=== PATIENT | male | born 1965 | race Caucasian/White ===

== ENCOUNTER → 2019-04-13 | Day surgery (SDC) | payer MEDICARE ==
[2019-04-12 13:39] LABS: BASOPHILS % 0.5 % (0.0-1.0); EOSINOPHILS # (AUTO) 0.1 (0.0-0.4); EOSINOPHILS % 2.3 % (0.0-6.0); HEMATOCRIT 35.5 % (38.2-49.6); HEMOGLOBIN 11.4 g/dL (14.0-18.0); LYMPHOCYTES # (AUTO) 1.7 (1.0-3.2); LYMPHOCYTES % 37.7 % (18.0-39.1); MEAN CORPUSCULAR HEMOGLOBIN 30.1 pg (28-32); MEAN CORPUSCULAR HGB CONC 32.1 g/dL (31-35); MEAN CORPUSCULAR VOLUME 93.7 fL (81-99); MONOCYTES # (AUTO) 0.3 (0.2-0.8); MONOCYTES % 6.4 % (4.4-11.3); NEUTROPHILS # (AUTO) 2.3 (2.1-6.9); NEUTROPHILS % 52.9 % (38.7-80.0); PLATELET COUNT 218 x10e3/uL (140-360); RED BLOOD COUNT 3.79 x10e6/uL (4.3-5.7); RED CELL DISTRIBUTION WIDTH 12.4 % (11.7-14.4)
--- NOTE | 2019-04-12 14:27 | Diagnostic Imaging Report ---
EXAMINATION: PA and lateral views of the chest. COMPARISON: None CLINICAL HISTORY: Preoperative exam for hernia repair DISCUSSION: Lines/tubes: None. Lungs: The lungs are well inflated and clear. There is no evidence of pneumonia or pulmonary edema. Pleura: There is no pleural effusion or pneumothorax. Heart and mediastinum: The cardiomediastinal silhouette is normal. Bones and soft tissues: No acute bony abnormalities. Healed fracture deformity of the posterior right eighth rib. IMPRESSION: No acute cardiopulmonary abnormalities. Signed by: Dr. Lalo Dotson M.D. on 04/12/2019 2:24 PM
[~2019-04-13] MED LIST: ADVAIR 100-501 EACH; AMITRIPTYLINE H25 MG PO; ANORO INHALER; ANTARA; ASPIRIN81 MG; ATROPINE SULFATE 1 MG/ML VIAL ONE; BACITRACIN 50,000 UNIT VIAL ONE; BUPIVACAINE HCL 0.5% INJ 30 ML VIAL INJ ONE; BUSPIRONE HCL5 MG PO; CEFAZOLIN SOD 2 GM/D5W 50ML 50 ML IV ONE; CETIRIZINE HCL10 MG; CYCLOBENZAPRINE5 MG; D3; DEXAMETHASONE SOD PHOS INJ 4 MG/ML VIAL ONE; FENOFIBRATE145 MG; FENTANYL CITRATE/PF 100MCG/2 ML INJ ONE; FISH OIL 1,2001 EACH; FLOMAX0.4 MG PO; LEVOTHYROXINE75 MCG PO; LIDOCAINE HCL 2% LOCAL INJ 5 ML SDV VIAL INJ ONE; LISINOPRIL10 MG PO; MIDAZOLAM HCL 2 MG/2 ML VIAL ONE; MULTI-VITAMIN1 EACH; NEOSTIGMINE 5 MG/5ML SYR ONE; OMEPRAZOLE40 MG; ONDANSETRON HCL INJ 2MG/ML 2ML 2 MG/ML VIAL ONE; POLYETHYLENE GL17 GM PO; PROPOFOL IV EMULSION 10 MG/ML 20 ML VIAL ONE; PYRIDOSTIGMINE60 MG; ROCURONIUM BROMIDE 10 MG/ML 5ML VIAL ONE; SEVOFLURANE INHAL SOLN 250 ML PEN BTL ONE; TESTOSTERONE GEL; VENTOLIN HFA18 GM; XANAX0.5 MG
--- OUTSIDE RECORDS SUMMARY | 2019-04-13 11:09 | XMS REPORT | Clinical Summary ---
Author Author [facility] Organization [facility] Address Unknown Phone Unavailable Care Team Providers Care Patient Observer Name Role Phone Jeremias Stone MD PCP Allergies No Known Allergies Medications End Date Status Medication Sig Dispensed Refills Start Date Active tamsulosin (FLOMAX) 0.4 Take 0.4 mg 0 mg capsule,extended by mouth release 24hr daily. Active levothyroxine (SYNTHROID, Take 75 mcg 0 LEVOXYL) 75 mcg tablet by mouth every morning. Active testosterone (ANDROGEL) 1 Place 5 g on 0 % (25 mg/2.5gram) gel in the skin packet daily. Active polyethylene glycol Take 17 g by 0 (MIRALAX) 17 gram packet mouth daily. Active ALPRAZolam (XANAX) 0.5 MG Take 0.5 mg 0 tablet by mouth nightly as needed for anxiety. Active omeprazole (PriLOSEC) 40 Take 40 mg by 0 MG capsule mouth daily. Active budesonide-formoterol Inhale 2 0 (SYMBICORT) 160-4.5 puffs 2 (two) mcg/actuation inhaler times a day. Active cyclobenzaprine Take 10 mg by 0 (FLEXERIL) 10 mg tablet mouth. Active fenofibrate (TRICOR) 145 Take 145 mg 0 MG tablet by mouth daily. Active lisinopril Take 10 mg by 0 (PRINIVIL,ZESTRIL) 10 mg mouth daily. tablet Active umeclidinium bromide Inhale. 0 (INCRUSE ELLIPTA INHL) Active cetirizine 10 mg capsule Take by 0 mouth. Active fluticasone (FLONASE) 50 2 sprays by 0 mcg/actuation nasal spray Each Nare route daily. Active amitriptyline (ELAVIL) 25 Take 25 mg by 0 MG tablet mouth nightly. Active fentanyl/bupivacaine/NS/P Inject as 0 F (FENTANYL, directed. PF,-BUPIVACAINE-NACL) Infusion pump 2-0.0625 mcg/mL-% prefilled pump reservoir Active sodium chloride 0.9% Infuse into a 0 parenteral solution with venous hydromorPHONE (PF) 10 catheter mg/mL solution 20 mcg/mL continuously. Infusion pump Active fenofibrate micronized Take 130 mg 0 (ANTARA) 130 MG capsule by mouth daily before breakfast. Active albuterol sulfate Inhale. 0 (VENTOLIN HFA INHL) Active umeclidinium Inhale. 0 brm/vilanterol tr (ANORO ELLIPTA INHL) Active multivitamin (THERAGRAN) Take 1 tablet 0 tablet by mouth daily. Active cholecalciferol, vitamin Take 2,000 0 D3, (VITAMIN D3) 2,000 Units by unit capsule capsule mouth daily. Active docosahexanoic acid/epa Take 1,200 mg 0 (FISH OIL ORAL) by mouth. Active ascorbic acid, vitamin C, Take 500 mg 0 (ascorbic acid with breezy by mouth hips) 500 MG tablet daily. Active urea (CARMOL) 40 % cream Apply 0 topically 2 (two) times a day. Active halobetasol (ULTRAVATE) Apply 0 0.05 % cream topically 2 (two) times a day. Active MESTINON 60 mg Take 60mg PO 90 tablet 11 tabletIndications: BID x 1wk, 9 Oropharyngeal dysphagia then 60mg PO TID. Active busPIRone (BUSPAR) 5 MG 5 mg 2 (two) 0 tablet times a day. 9 11/24/2018 Discontinued fentaNYL (FENTORA) 100 Apply 100 mcg 0 MCG buccal tablet to cheek every 4 (four) hours as needed for moderate pain. 11/24/2018 Discontinued hydromorPHONE (DILAUDID) Take 2 mg by 0 2 MG tablet mouth every 4 (four) hours as needed. 09/14/2018 Discontinued acitretin (SORIATANE) 25 Take 25 mg by 0 MG capsule mouth daily before breakfast. 09/14/2018 Discontinued ketamine 0.5% and Apply 0 bupivacaine 0.5% cream topically once. 09/14/2018 Discontinued ranitidine (ZANTAC) 150 Take 1 tablet 60 tablet 11 03/06/201 MG tablet (150 mg 8 total) by mouth 2 (two) times a day. 08/30/2018 fluconazole (DIFLUCAN) Take 1 tablet 21 tablet 0 100 MG tablet (100 mg 8 total) by mouth daily for 21 days. 10/26/2018 fluconazole (DIFLUCAN) Take 1 tablet 14 tablet 0 100 MG tablet (100 mg 8 total) by mouth daily for 14 days. 10/22/2018 azithromycin (ZITHROMAX) Take 2 6 tablet 0 250 MG tablet tablets the 8 first day, then 1 tablet daily for 4 days. Active Problems No known active problems Encounters Care Team Description Date Type Specialty Liz Beaver MD Oropharyngeal dysphagia (Primary Dx); Hoarseness of voice; Cervical radiculopathy; At high risk for aspiration 04/12/2019 Office Visit Neurology Liz Beaver MD 02/17/2019 Telephone Neurology Spring Brandt MA 01/31/2019 Telephone Neurology Liz Beaver MD Oropharyngeal dysphagia; Hoarseness of voice; Aspiration pneumonia, unspecified aspiration pneumonia type, unspecified laterality, unspecified part of lung (HCC) 01/30/2019 Hospital Radiology Encounter Liz Beaver MD Oropharyngeal dysphagia; Cervical radiculopathy 01/30/2019 Hospital Radiology Encounter Liz Beaver MD Oropharyngeal dysphagia (Primary Dx) 01/30/2019 Orders Only Neurology Liz Beaver MD 01/24/2019 Telephone Neurology Spring Brandt MA 01/12/2019 Telephone Neurology Liz Beaver MD Oropharyngeal dysphagia 12/27/2018 Lab Lab Liz Beaver MD Oropharyngeal dysphagia 12/27/2018 Lab Lab Liz Beaver MD Oropharyngeal dysphagia (Primary Dx); Hoarseness of voice; Aspiration pneumonia, unspecified aspiration pneumonia type, unspecified laterality, unspecified part of lung (HCC); Cervical radiculopathy; Former smoker, stopped smoking many years ago 12/27/2018 Office Visit Neurology Liz Beaver MD 12/27/2018 Orders Only Neurology Liz Beaver MD Oropharyngeal dysphagia (Primary Dx) 12/08/2018 Orders Only Neurology Nikki Santos MD Pharyngeal dysphagia (Primary Dx); Acute laryngitis 11/24/2018 Office Visit Otolaryngology Juanita Qureshi MA Pharyngeal dysphagia (Primary Dx); Aspiration pneumonia, unspecified aspiration pneumonia type, unspecified laterality, unspecified part of lung (HCC) 10/24/2018 Telephone Otolaryngology Flor Corbett MA 10/18/2018 Orders Only Otolaryngology Flor Corbett MA 10/17/2018 Telephone Otolaryngology Zehra Little MD Other acute nonsuppurative otitis media of right ear, recurrence not specified (Primary Dx); Dysfunction of both eustachian tubes 10/13/2018 Office Visit Otolaryngology Juanita Qureshi MA 10/12/2018 Telephone Otolaryngology Nikki Santos MD Pharyngeal dysphagia (Primary Dx); Chronic laryngitis 09/14/2018 Office Visit Otolaryngology Nikki Santos MD Chronic laryngitis (Primary Dx); Pharyngeal dysphagia 08/09/2018 Office Visit Otolaryngology 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 08/09/2018 Speech & Otolaryngology Language Eval Zehra Little MD Dysphonia (Primary Dx); Chronic non-seasonal allergic rhinitis, unspecified trigger; Laryngopharyngeal reflux (LPR); IgG deficiency 06/15/2018 Office Visit Otolaryngology after 04/12/2018 Family History Medical History Relation Name Comments Heart disease Father Heart disease Maternal Grandmother Heart disease Paternal Grandfather Heart disease Paternal Grandmother Relation Name Status Comments Father Maternal Grandmother Paternal Grandfather Paternal Grandmother Social History Date Tobacco Use Types Packs/Day Years Used Former Smoker Smokeless Tobacco: Never Used Alcohol Use Drinks/Week oz/Week Comments No Sex Assigned at Date Recorded Not on file Industry Job Start Date Occupation Not on file Not on file Not on file Travel End Travel History Travel Start No recent travel history available. Last Filed Vital Signs Time Taken Vital Sign Reading 04/12/2019 10:12 AM CDT Blood Pressure 110/72 04/12/2019 10:12 AM CDT Pulse 74 - Temperature - - Respiratory Rate - - Oxygen Saturation - - Inhaled Oxygen - Concentration 04/12/2019 10:12 AM CDT Weight 108 kg (238 lb) 04/12/2019 10:12 AM CDT Height 185.4 cm (6' 1") 04/12/2019 10:12 AM CDT Body Mass Index 31.4 Plan of Treatment Care Team Description Date Type Specialty Liz Beaver MD [address] [facility] [address] [place] [address] 10/17/2019 Office Visit Neurology Health Maintenance Due Date Last Done Comments COLON CANCER SCREENING 2014 SHINGLES VACCINES (#1) 2014 INFLUENZA VACCINE 06/15/2019 Procedures Comments Procedure Name Priority Date/Time Associated Diagnosis NE MOTOR &/SENS 9-10 NRV Routine 01/31/2019 Oropharyngeal dysphagia CNDJ PRECONF ELTRODE LIMB 3:[address] CHEST W CONTRAST Routine 01/30/2019 Oropharyngeal dysphagia 10:33 AM CDT Hoarseness of voice Aspiration pneumonia, unspecified aspiration pneumonia type, unspecified laterality, unspecified part of lung (HCC) ESTIMATED GFR Routine 01/30/2019 9:48 AM CDT POC CREATININE Routine 01/30/2019 9:48 AM CDT MRI CERVICAL SPINE WO Routine 01/30/2019 Oropharyngeal dysphagia CONTRAST 9:10 AM CDT Cervical radiculopathy LACTIC ACID LEVEL Routine 12/27/2018 4:00 PM ORACLE CONSULTANT ALDOLASE, SERUM Routine 12/27/2018 4:00 PM ORACLE CONSULTANT THYROID ANTIBODY GROUP Routine 12/27/2018 (TPO + TG) 4:00 PM ORACLE CONSULTANT ATYPICAL P ANCA TITER Routine 12/27/2018 4:00 PM ORACLE CONSULTANT ANCA SCREEN WITH REFLEX Routine 12/27/2018 TO ANCA TITER 4:00 PM ORACLE CONSULTANT DEE IFA, W/REFL TO Routine 12/27/2018 TITER/PATTERN/CASCADE 4:00 PM ORACLE CONSULTANT SSA/SSB ANTIBODY Routine 12/27/2018 4:00 PM ORACLE CONSULTANT KKAPPA/LAMBDA LIGHT Routine 12/27/2018 CHAINS, FREE WITH RATIO 4:00 PM ORACLE CONSULTANT AND REFLEX TO IMMUNOFIXAT ACETYLCHOLINE RECEPTOR Routine 12/27/2018 BLOCKING AB 4:00 PM ORACLE CONSULTANT THYROID STIMULATING Routine 12/27/2018 IMMUNOGLOBULIN 4:00 PM ORACLE CONSULTANT ACETYLCHOLINE RECEPTOR Routine 12/27/2018 MODULATING AB 4:00 PM ORACLE CONSULTANT STRIATED MUSCLE AB, IGG Routine 12/27/2018 WITH REFLEX TO TITER 4:00 PM ORACLE CONSULTANT ACETYLCHOLINE RECEPTOR Routine 12/27/2018 BINDING AB 4:00 PM ORACLE CONSULTANT CREATINE KINASE, TOTAL Routine 12/27/2018 (CPK) 4:00 PM ORACLE CONSULTANT BASIC METABOLIC PANEL Routine 12/27/2018 4:00 PM ORACLE CONSULTANT SERUM ELECTROPHORESIS Routine 12/27/2018 4:00 PM ORACLE CONSULTANT MISCELLANEOUS REFERRAL Routine 12/27/2018 TEST 4:00 PM ORACLE CONSULTANT after 04/12/2018 Results * EMG General Request (01/31/2019 3:42 PM CDT) Narrative Performed At Electromyography and NCS Report [facility] Neurological [place] [address] [address] T :( [phone] F : Patient: Thad Fonseca Physician: Omer Beaver MD Sex: Male Test Date: 01/30/19 Age: 53 Height: 73 inches Weight: 229 lbs Ref. M.D.: Liz Beaver MD. : 1965 History/Comments: Thad Fonseca is a 53 y.o. male in EMG lab for evaluation of dysphagia and hoarseness of voice since 2011 but has gradually progressed in the last 1 1/2 years to a point where he has been aspirating a lot with 2-3 aspiration pneumonias. Denies any muscle weakness, twitching, diplopia or droopy eyes. Neurological exam showed hoarse voice, no dysarthria, good gag reflex, normal muscle strength and bulk, absent ankle reflex bilaterally and no fatigability. Temp: URE: 31.0, LRE: 33.0 Motor Nerve Study Right Median Nerve Rec Site: APB Lat (ms) Amp (mV) Dist (mm) C.V. (m/s) STIM SITE Wrist 3.910.50 Elbow [id number] Right Ulnar Nerve Rec Site: ADM Lat (ms) Amp (mV) Dist (mm) C.V. (m/s) STIM SITE Wrist 3.09.265 B.Elbow 6.28.099803.2 A.Elbow 8.48.717025.3 Right Peroneal Nerve Rec Site: EDB Lat (ms) Amp (mV) Dist (mm) C.V. (m/s) STIM SITE Ankle 4.33.70 Fib.Head 12.73.303483.8 Pop.Fos. [id number] Right Tibial Nerve Rec Site: AH Lat (ms) Amp (mV) Dist (mm) C.V. (m/s) STIM SITE Ankle 3.49.40 Pop.Fos. [id number] Sensory Nerve Study Right Median Nerve Rec Site: Wrist Pk Lat (ms) Amp (uV) STIM SITE Thumb 3.926.0 Sensory Nerve Study Right Ulnar Nerve Rec Site: Wrist Pk Lat (ms) Amp (uV) STIM SITE 5th dig 3.19.7 Right Radial Nerve Rec Site: Wrist Pk Lat (ms) Amp (uV) STIM SITE Index 2.546.3 Right Sural Nerve Rec Site: Ankle Pk Lat (ms) Amp (uV) STIM SITE mid calf NRNR Right Saphenous Nerve Rec Site: Ankle Pk Lat (ms) Amp (uV) STIM SITE Med.Lotus. NRNR Right SuperperonNerve Rec Site:Pk Lat (ms) Amp (uV) STIM SITE NRNR F-Wave Study Right Median Nerve Rec Site: APB Latency Amplitude Stim Site: Wrist ms mV M wave 0.00 F wave 30.081.50 Right Ulnar Nerve Rec Site: ADM Latency Amplitude Stim Site: Wrist ms mV M wave 0.00 F wave 31.921.50 Right Peroneal Nerve Rec Site: EDB Latency Amplitude Stim Site: Ankle ms mV M wave 0.00 F wave 57.171.50 Right Tibial Nerve Rec Site: AH Latency Amplitude Stim Site: Ankle ms mV M wave 0.00 F wave 54.501.50 Repetitive Stimulation Study Right Ulnar Nerve Rec Site: ADM Stim Site: Wrist Trace 1 Trace 4 % decr. 8.833 9.000 1.800 AMP9.000 9.250 2.700 (mV)10.167 10.333 1.600 27.090 27.056 -0.100 AREA32.535 33.625 3.300 (mVms)33.389 32.549 -2.500 NOTES: Preex, Immed P, 1min P 1 min Exercise Repetitive Stimulation Study Right Ulnar Nerve Rec Site: ADM Stim Site: Wrist Trace 1 Trace 4 % decr. 8.917 9.417 5.600 AMP8.833 9.250 4.700 (mV)0.000 0.000 ? 29.083 29.056 0.000 AREA28.660 28.903 0.800 (mVms)0.000 0.000 ? NOTES: 2min P, 3min P Right Accessory Nerve Rec Site: Stim Site: Trace 1 Trace 4 % decr. 4.250 4.417 3.900 AMP3.667 3.583 -2.200 (mV)4.167 4.333 4.000 29.382 0.299 -98.900 AREA0.139 22.819 26946.400 (mVms)0.507 26.431 5114.100 NOTES: Preex, Immed P, [id number] Exercise Right Accessory Nerve Rec Site: Stim Site: Trace 1 Trace 4 % decr. 4.167 4.417 5.900 AMP4.250 4.333 1.900 (mV)0.000 0.000 ? 28.639 27.590 -3.600 AREA0.410 0.417 1.700 (mVms)0.000 0.000 ? NOTES: 2min P, 3min P Right Facial Nerve Rec Site: Stim Site: Trace 1 Trace 4 % decr. 1.900 1.900 0.000 AMP2.167 1.967 -9.200 (mV)1.800 1.800 0.000 5.722 5.544 -3.100 AREA6.272 5.869 -6.400 (mVms)5.306 5.333 0.500 NOTES: Preex, Immed P, 1min P 1 min Exercise Repetitive Stimulation Study Right Facial Nerve Rec Site: Stim Site: Trace 1 Trace 4 % decr. 2.133 2.067 -3.100 AMP1.967 2.100 6.700 (mV)0.000 0.000 ? 6.544 6.108 -6.600 AREA5.778 6.117 5.800 (mVms)0.000 0.000 ? NOTES: 2min P, 3min P EMG Study Name Ins Act Fibs PSW Fascics Polyph MU Amp MU Dur Config Pattern Recruit TEXT R. Deltoidnorm none none none none norm norm norm norm norm R. Biceps Bracnorm none none none rare norm norm norm norm norm R. Tricepsnorm none none none inc norm norm serr norm norm R. Brachioradinorm none none none inc norm inc poly norm -1 R. Dors.Int.1norm none none none inc inc inc poly norm -1 R. Vastus Lat.norm none none none none norm norm norm norm norm R. Adductor Lnnorm none none none none norm norm norm norm norm R. Tibialis Annorm none none none none norm norm norm norm norm R. Gastroc.Mednorm none none none inc norm norm poly norm norm R. Semimembr.norm none none none none norm norm norm norm norm R. Tonguenorm none none none none Far MUAPs Nerve conduction study: 1. Normal distal latency, amplitude and conduction velocity in right median, ulnar, peroneal and tibial motor responses. 2. Prolonged peak latency and normal amplitude in right median sensory response. 3. Normal peak latency and reduced amplitude in right ulnar sensory response. 4. Normal peak latency and amplitude in right radial sensory response. 5. Absent right sural, superficial peroneal and saphenous sensory responses. 6. F-waves: normal in right median, ulnar and tibial nerves. Prolonged in right peroneal nerve. Repetitive nerve stimulation: Repetitive stimulations of the right ulnar nerve (3 Hz, recording from ADM) showed no decrement. Repetitive stimulations of the right XI nerve (3 Hz, recording from trapezius) showed maximum decrement of 2.2% (immediate post-exercise). Repetitive stimulations of the right facial nerve (3 Hz, recording from nasalis) showed maximum decrement of 9.2% (immediate post-exercise). Electromyography: Using a sterile monopolar needle intramuscular recordings were evaluated in the RUE & RLE and tongue. There were polyphasic/ large amplitude/ long duration motor units with reduced recruitment in right triceps, Brachioradialis and first DI suggestive of chronic denervation. Tongue was normal although the MUAPs were far. Impression: Abnormal EMG/NCS 1. This study suggests a chronic inactive right C7 & C8 radiculopathy. 2. 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 3. There is no electro-diagnostic evidence of neuromuscular junction compromise or motor neuron disease. Recommendations: As we have seen borderline decline (9.2%) on RNS of right facial nerve although it s not >10% decrement evaluation for neuromuscular junction disorders can be considered if clinically indicated. Liz Beaver MD Material Reprocessing Associate in Clinical neurology Adjunct Material Reprocessing Associate [facility] Neurology, Neuromuscular Medicine, Electrodiagnostic medicine [address] [facility] [address], [place] Department of Neurology [facility], [place] [address] Office: [phone] * CT Chest W Contrast (01/30/2019 10:33 AM CDT) Specimen Narrative Performed At EXAM: HM [facility] CT CHEST W CONTRAST INDICATION: R13.12 Dysphagiaoropharyngeal phase, R49.0 Dysphonia, chronic smokerhoarseness of voice COMPARISON: None. TECHNIQUE: After administration of iodinated contrast intravenously, axial CT images of the chest were obtained. Coronal and sagittal reformations were obtained. Axial maximal intensity projection images the lungs were obtained. Iterative reconstruction and/or automated exposure control techniques were employed to reduce radiation dose. FINDINGS: Limited neck: Visualized portions of the thyroid are normal. Subcentimeter short axis lymph nodes scattered throughout the bilateral lower neck which do not meet CT size criterion for adenopathy. Chest: Normal fatty involution of the thymus. Esophagus is normal. Heart size is normal. Small, simple pericardial effusion. Left vertebral artery arises directly from the aortic arch, an anatomic variant. Minimal atherosclerosis aortic arch. Main pulmonary artery diameter is normal. No mediastinal, hilar, internal mammary, or bilateral axillary adenopathy. Small amount of mucous debris layering within the dependent portion the upper trachea (series 3 and 1, slice 19). Minimal linear opacity lateral aspect lingula and anterior aspect right upper lobe discoid atelectasis versus scar/fibrosis. Otherwise, major airways are normal. Trace biapical pleural thickening. 7 mm diameter paraseptal bulla medial aspect right lung apex (series 301, slice 29). 1.0 cm diameter bulla posterior aspect left lower lobe (series 301, slice 77). Trace centrilobular emphysema bilateral lung apices. 3 mm diameter calcified granuloma medial aspect right lower lobe (series 3 and 1, slice 64). Mild dependent subpleural linear interstitial thickening groundglass, dependent atelectasis an/or nonspecific fibrosis. Mild gynecomastia bilaterally. Limited abdomen: Subtle hypodensity liver along the adjacent to the falciform ligament, likely focal fatty infiltration. Otherwise, visualized portions of the liver and gallbladder are normal. Mild atrophy of the pancreas, visualized portions of the spleen, bilateral adrenals, and bilateral kidney upper poles are normal. Visualized portions of the stomach, small bowel, and large bowel are normal. Visualized upper abdominal vasculature is normal. No adenopathy in visualized portions of the upper abdomen. Musculoskeletal: 9 mm diameter rim calcified tubular structure right paramedian back subcutaneous fat at the level the mid thoracic spine (series 602B, slice 48) without suspicious feature. Partially visualized intrathecal catheter anterior aspect epidural space lower thoracic spine (series 600 2B, slice 55). Minimal degenerative changes thoracic spine. Osteopenia. No suspicious osseous soft tissue structures. IMPRESSION: 1. Trace centrilobular emphysema and 2 subcentimeter bulla. No suspicious pulmonary nodule. 2. Osteopenia. [id number] Procedure Note Interface, Radiology Results Incoming - 01/30/2019 10:57 AM CDT EXAM: CT CHEST W CONTRAST INDICATION: R13.12 Dysphagia oropharyngeal phase, R49.0 Dysphonia, chronic smoker hoarseness of voice COMPARISON: None. TECHNIQUE: After administration of iodinated contrast intravenously, axial CT images of the chest were obtained. Coronal and sagittal reformations were obtained. Axial maximal intensity projection images the lungs were obtained. Iterative reconstruction and/or automated exposure control techniques were employed to reduce radiation dose. FINDINGS: Limited neck: Visualized portions of the thyroid are normal. Subcentimeter short axis lymph nodes scattered throughout the bilateral lower neck which do not meet CT size criterion for adenopathy. Chest: Normal fatty involution of the thymus. Esophagus is normal. Heart size is normal. Small, simple pericardial effusion. Left vertebral artery arises directly from the aortic arch, an anatomic variant. Minimal atherosclerosis aortic arch. Main pulmonary artery diameter is normal. No mediastinal, hilar, internal mammary, or bilateral axillary adenopathy. Small amount of mucous debris layering within the dependent portion the upper trachea (series 3 and 1, slice 19). Minimal linear opacity lateral aspect lingula and anterior aspect right upper lobe discoid atelectasis versus scar/fibrosis. Otherwise, major airways are normal. Trace biapical pleural thickening. 7 mm diameter paraseptal bulla medial aspect right lung apex (series 301, slice 29). 1.0 cm diameter bulla posterior aspect left lower lobe (series 301, slice 77). Trace centrilobular emphysema bilateral lung apices. 3 mm diameter calcified granuloma medial aspect right lower lobe (series 3 and 1, slice 64). Mild dependent subpleural linear interstitial thickening groundglass, dependent atelectasis an/or nonspecific fibrosis. Mild gynecomastia bilaterally. Limited abdomen: Subtle hypodensity liver along the adjacent to the falciform ligament, likely focal fatty infiltration. Otherwise, visualized portions of the liver and gallbladder are normal. Mild atrophy of the pancreas, visualized portions of the spleen, bilateral adrenals, and bilateral kidney upper poles are normal. Visualized portions of the stomach, small bowel, and large bowel are normal. Visualized upper abdominal vasculature is normal. No adenopathy in visualized portions of the upper abdomen. Musculoskeletal: 9 mm diameter rim calcified tubular structure right paramedian back subcutaneous fat at the level the mid thoracic spine (series 602B, slice 48) without suspicious feature. Partially visualized intrathecal catheter anterior aspect epidural space lower thoracic spine (series 600 2B, slice 55). Minimal degenerative changes thoracic spine. Osteopenia. No suspicious osseous soft tissue structures. IMPRESSION: 1. Trace centrilobular emphysema and 2 subcentimeter bulla. No suspicious pulmonary nodule. 2. Osteopenia. [id number] Performing Organization Address City/State/Zipcode Phone Number [facility] [address] [place] [address] * Estimated GFR (01/30/2019 9:48 AM CDT) Estimated GFR 48 (A) mL/min/1.73 m2 [place] Comment: EPISCOPAL [facility] rpretation G1 >=90 Normal or high G2 60-89Mildly decreased [id number] Mildly to moderately decreased F6q36-22 Moderately to severely decreased G4 15-29Severely decreased G5 <15Kidney failure The eGFR was calculated using the Chronic Kidney Disease Epidemiology Collaboration (CKD-EPI) equation. Interpretation is based on recommendations of the National Kidney Foundation-Kidney Disease Outcomes Quality Initiative (NKF-KDOQI) published in 2014. Specimen Blood Performing Organization Address City/[facility]/Zipcode Phone Number [facility] DEPARTMENT OF [address] [place] [address] PATHOLOGY AND GENOMIC MEDICINE [place] EPISCOPAL [address] [place] [address] * POC creatinine (01/30/2019 9:48 AM CDT) POC creatinine 1.6 (H) 0.7 - 1.2 mg/dl [place] Comment: EPISCOPAL Meter ID: [id number] [facility] Playroom Attendant: Abhay Church Specimen Blood Performing Organization Address [facility]/Zipcode Phone Number [facility] DEPARTMENT OF [address] [place] [address] PATHOLOGY AND GENOMIC MEDICINE [place] EPISCOPAL [address] [place] [address] * MRI Cervical Spine Wo Contrast (01/30/2019 9:10 AM CDT) Specimen Narrative Performed At [facility] EXAMINATION: MRI CERVICAL SPINE WO CONTRAST CLINICAL HISTORY: R13.12 Dysphagiaoropharyngeal phase, M54.12 Radiculopathycervical region, Radiculopathy, dysphagiacervical radiculopathy COMPARISON:None TECHNIQUE: Multiplanar multisequence noncontrast enhanced examination was performed of the cervical spine. FINDINGS: Vertebral body heights are maintained. The cervicomedullary junction is unremarkable. No cord signal abnormality identified. No focal marrow lesions. No masses are present in the visualized prevertebral soft tissues. Cervical alignment is preserved with normal lordosis. There is no significant spondylolisthesis. Axial images through the disc spaces demonstrate the following: C1-C2: There is narrowing of the atlantoaxial interval with spurring. There is no significant stenosis. C2-C3: No significant posterior disc disease, spinal canal or neural foraminal stenosis. C3-C4: There is posterior spondylosis with minimal effacement of ventral thecal sac without stenosis. Uncovertebral arthrosis and facet disease a results in mild to moderate bilateral foraminal stenosis. C4-C5: There is posterior spondylosis without canal narrowing. Uncovertebral arthrosis and facet disease a results in mild left and mild to moderate right foraminal narrowing. C5-C6: There is a small shallow posterior central disc protrusion minimally effacing the ventral thecal sac without stenosis. Uncovertebral arthrosis and facet disease a results in minimal right foraminal narrowing. C6-C7: The canal is widely patent despite disc desiccation and loss of disc height with minimal disc bulge. Uncovertebral arthrosis and facet disease a results in moderate right and mild left foraminal narrowing. A small cyst is noted in the left foramen which may represent a nerve root sleeve cyst. C7-T1: There is 1 mm anterolisthesis of C7. The canal is patent. The foramina are widely patent. No significant posterior disc disease, spinal canal or neural foraminal stenosis at other visualized levels. IMPRESSION: There are mild degenerative disc changes throughout the cervical spine most prominent at C5-6 with moderate right foraminal narrowing. Correlate for a right C6 radiculopathy to determine significance. Please note that the right vertebral artery is dominant and abuts the anterolateral exits of the foramina at multiple levels including C5-6. [facility]-[id number] Procedure Note Hm Interface, Radiology Results - 01/30/2019 11:13 AM CDT EXAMINATION: MRI CERVICAL SPINE WO CONTRAST CLINICAL HISTORY: R13.12 Dysphagia oropharyngeal phase, M54.12 Radiculopathy cervical region, Radiculopathy, dysphagia cervical radiculopathy COMPARISON: None TECHNIQUE: Multiplanar multisequence noncontrast enhanced examination was performed of the cervical spine. FINDINGS: Vertebral body heights are maintained. The cervicomedullary junction is unremarkable. No cord signal abnormality identified. No focal marrow lesions. No masses are present in the visualized prevertebral soft tissues. Cervical alignment is preserved with normal lordosis. There is no significant spondylolisthesis. Axial images through the disc spaces demonstrate the following: C1-C2: There is narrowing of the atlantoaxial interval with spurring. There is no significant stenosis. C2-C3: No significant posterior disc disease, spinal canal or neural foraminal stenosis. C3-C4: There is posterior spondylosis with minimal effacement of ventral thecal sac without stenosis. Uncovertebral arthrosis and facet disease a results in mild to moderate bilateral foraminal stenosis. C4-C5: There is posterior spondylosis without canal narrowing. Uncovertebral arthrosis and facet disease a results in mild left and mild to moderate right foraminal narrowing. C5-C6: There is a small shallow posterior central disc protrusion minimally effacing the ventral thecal sac without stenosis. Uncovertebral arthrosis and facet disease a results in minimal right foraminal narrowing. C6-C7: The canal is widely patent despite disc desiccation and loss of disc height with minimal disc bulge. Uncovertebral arthrosis and facet disease a results in moderate right and mild left foraminal narrowing. A small cyst is noted in the left foramen which may represent a nerve root sleeve cyst. C7-T1: There is 1 mm anterolisthesis of C7. The canal is patent. The foramina are widely patent. No significant posterior disc disease, spinal canal or neural foraminal stenosis at other visualized levels. IMPRESSION: There are mild degenerative disc changes throughout the cervical spine most prominent at C5-6 with moderate right foraminal narrowing. Correlate for a right C6 radiculopathy to determine significance. Please note that the right vertebral artery is dominant and abuts the anterolateral exits of the foramina at multiple levels including C5-6. [facility]-[id number] Performing Organization Address City/State/Zipcode Phone Number [facility] [address] [place] [address] * Atypical P ANCA titer (12/27/2018 4:00 PM ORACLE CONSULTANT) Atypical P-ANCA 1:40 (H) <1:20 titer [facility] titer Comment: [facility] Atypical ANCA was [facility] observed.This pattern has been associated with various diseases, including ulcerative colitis, Crohn's disease, chronic liver disease, rheumatoid arthritis, systemic lupus erythematosis, and on occasion, Bao's Granulomatosis. Specimen Narrative Performed At FASTING: UNKNOWN [facility] Resulting Agency Comment Performing Organization Information: Site ID: EZ Name: [facility], Address: [address] [place] [phone] Director: Alfreda Siddiqui MD,PhD,SARMAD Performing Organization Address City/State/Zipcode Phone Number [facility] [address] [place] [address] [place] [phone] [facility] [phone] * [place]/Lambda Light Chains, Free with Ratio and Reflex to Immunofixation (12/27/2018 4:00 PM ORACLE CONSULTANT) [place] light 29.6 (H) 3.3 - 19.4 mg/L [facility] chain [facility] ING II Lambda light 26.8 (H) 5.7 - 26.3 mg/L [facility] chain [facility] ING II [place] lambda 1.10 0.26 - 1.65 [facility] ratio Comment: [facility] Free kappa/lambda ratio in ING II serum of normal individuals is 0.26-1.65. Excess production of free kappa or lambda chains can alter this ratio. Monoclonal free light chains are found in serum of patients with multiple myeloma, Waldenstrom's macroglobulinemia, mu-heavy chain disease, primary amyloidosis, light chain deposition disease, monoclonal gammopathy of undetermined significance, and lymphoproliferative disorders. Measurement of free light chain concentration in serum is useful for diagnosis, prognosis, monitoring disease activity and following response to therapy of these disorders. Specimen Narrative Performed At FASTING: UNKNOWN [facility] Resulting Agency Comment Performing Organization Information: Site ID: IG Name: [facility] Address: [address] [place] [phone] Director: Dr. Miles Chopra Performing Organization Address City/State/Zipcode Phone Number [facility] [employer] [place] [address] II * ANCA SCREEN WITH REFLEX TO ANCA TITER (12/27/2018 4:00 PM ORACLE CONSULTANT) ANCA screen POSITIVE (A) NEGATIVE [facility] Comment: [facility] ANCA Screen includes [facility] evaluation for p-ANCA, c-ANCA and atypical p-ANCA. A positive ANCA screen reflexes to titer and pattern(s), e.g., cytoplasmic pattern (c-ANCA), perinuclear pattern (p-ANCA), or atypical p-ANCA pattern. c-ANCA and p-ANCA are observed in vasculitis, whereas atypical p-ANCA is observed in IBD (Inflammatory Bowel Disease). Atypical p-ANCA is detected in about 55% to 80% of patients with ulcerative colitis but only 5% to 25% of patients with Crohn's disease. Specimen Narrative Performed At FASTING: UNKNOWN [facility] Resulting Agency Comment Performing Organization Information: Site ID: EZ Name: [facility], Address: [address] [place] [phone] Director: Alfreda Siddiqui MD,PhD,SARMAD Performing Organization Address [facility]/Zipcode Phone Number [facility]/[place] [address] [place] [address] [facility] [address] * DEE IFA, W/REFL TO TITER/PATTERN/CASCADE (12/27/2018 4:00 PM ORACLE CONSULTANT) DEE screen NEGATIVE NEGATIVE [facility] Comment: [facility] DEE IFA is a first line screen ING II for detecting the presence of up to approximately 150 autoantibodies in various autoimmune diseases. A negative DEE IFA result suggests DEE-associated autoimmune diseases are not present at this time and does not reflex further. Visit Physician FAQs for interpretation of all antibodies in the [place], prevalence, and association with diseases at http://education.[employer]/ faq/RWE249 Specimen Narrative Performed At FASTING: UNKNOWN [facility] Resulting Agency Comment Performing Organization Information: Site ID: IG Name: [facility] Address: [address] [place] [phone] Director: Dr. Miles Chopra Performing Organization Address [facility] Phone Number [employer] [address] [place] [address] II * Thyroid antibody group (TPO + TG) (12/27/2018 4:00 PM ORACLE CONSULTANT) Thyroglobulin 1 < or=1 IU/mL [facility] Ab [facility] ING II Thyroperoxidase <1 <9 IU/mL [facility] Ab [facility] ING II Specimen Narrative Performed At FASTING: UNKNOWN [facility] Resulting Agency Comment Performing Organization Information: Site ID: IG Name: [facility] Address: [address] [place] [phone] Director: Dr. Miles Chopra Performing Organization Address [facility]/Zipcode Phone Number [employer] [address] [place] [address] II * SSA/SSB antibody (12/27/2018 4:00 PM ORACLE CONSULTANT) Sjogren's SS-A <1.0 NEG <1.0 NEG AI [facility] antibody [facility] ING II Sjogren's SS-B <1.0 NEG <1.0 NEG AI [facility] antibody [facility] ING II Specimen Narrative Performed At FASTING: UNKNOWN [facility] Resulting Agency Comment Performing Organization Information: Site ID: IG Name: [facility] Address: [address] [place] [address] Director: Dr. Miles Chopra Performing Organization Address City/State/Zipcode Phone Number [facility] [employer] [address] [place] [address] II * Miscellaneous referral test (12/27/2018 4:00 PM ORACLE CONSULTANT) Misc test name MUSK AB [facility] Misc test SEE NOTE [facility] result Comment: Report Status:FINAL MuSK Autoantibody, S MCR 0.00 nmol/L Reference Value: 0.00-0.02 - - - - - - - - - - - - - - - - - - - - - - - - - - - - - - A negative result does not exclude the diagnosis of autoimmune myasthenia gravis. Testing for acetylcholine receptor binding and modulating antibodies, and striational antibody should be considered. - - - - - - - - - - - - - - - - - - - - - - - - - - - - - - Laboratory Notes: This test was developed using an analyte specific reagent. Its performance characteristics were determined by [facility] in a manner consistent with CLIA requirements. This test has not been cleared or approved by the U.S. Food and Drug Administration. + + : PERFORMING SITE LEGEND : + + : MCR: [facility]: :: [address] [place] [address]: + + Specimen Performing Organization Address [facility] Phone Number [facility] [address] [place] [address] [facility] [address] [place] [address] * Acetylcholine receptor blocking Ab (12/27/2018 4:00 PM ORACLE CONSULTANT) Acetylcholine <15 <15 % Inhibition [facility] receptor [facility] blocking Ab [facility] Specimen Narrative Performed At FASTING: UNKNOWN [facility] Resulting Agency Comment Performing Organization Information: Site ID: EZ Name: [facility], Address: [address] [place] [phone] Director: Alfreda Siddiqui MD,PhD,SARMAD Performing Organization Address City/[facility] Centercode Phone Number [facility] [address] [place] [address] [facility] [address] * Acetylcholine receptor modulating Ab (12/27/2018 4:00 PM ORACLE CONSULTANT) Acetylcholine 8 % Inhibition [facility] receptor Comment: [facility] modulating Ab [facility] Reference Range: <32% INHIBITION This test was developed and its analytical performance characteristics have been determined by [employer] [facility]. It has not been cleared or approved by FDA. This assay has been validated pursuant to the CLIA regulations and is used for clinical purposes. Specimen Narrative Performed At FASTING: UNKNOWN [facility] Resulting Agency Comment Performing Organization Information: Site ID: EZ Name: [facility], Address: [address] [place] [address] Director: Alfreda Siddiqui MD,PhD,SARMAD Performing Organization Address [facility] Phone Number [facility] [address] [place] [address] [facility] [address] * Acetylcholine receptor binding Ab (12/27/2018 4:00 PM ORACLE CONSULTANT) Acetylcholine <0.30 nmol/L [facility] receptor Comment: [facility] binding Ab Reference Ranges for [facility] Acetylcholine Receptor Binding Antibody: Negative: < or=0.30 nmol/L Equivocal:0.31-0.49 nmol/L Positive: > or=0.50 nmol/L Specimen Narrative Performed At FASTING: UNKNOWN [facility] Resulting Agency Comment Performing Organization Information: Site ID: EZ Name: [facility], Address: [address] [place] [address] Director: Alfreda Siddiqui MD,PhD,SARMAD Performing Organization Address [facility] Number [facility] [employer] [facility]/[place] [address] [place] [address] [facility] [address] * Thyroid stimulating immunoglobulin (12/27/2018 4:00 PM ORACLE CONSULTANT) Thyroid <89 <140 % baseline [facility] stimulating Comment: [facility] immunoglobulin Thyroid stimulating [facility] immunoglobulins (TSI) can engage the TSH receptors resulting in hyperthyroidism in Graves' disease patients. TSI levels can be useful in monitoring the clinical outcome of Graves' disease as well as assessing the potential for hyperthyroidism from maternal- transfer. TSI results greater than or equal to (>=) 140% of the Reference Control are considered positive. NOTE: A serum TSH level greater than 350 micro-International Units/mL can interfere with the TSI bioassay and potentially give false positive results. Patients who are and are suspected of having hyperthyroidism should have both a TSI and human Chorionic Gonadotropin (hCG) tests measured. A serum hCG level greater than 40,625 mIU/mL can interfere with the TSI bioassay and may give false negative results. In these patients it is recommended that a second TSI is obtained when the hCG concentration falls below 40,625 mIU/mL (usually after approximately 20-weeks gestation). Specimen Narrative Performed At FASTING: UNKNOWN [facility] Resulting Agency Comment Performing Organization Information: Site ID: EZ Name: [employer], Address: [address] [place] [phone] Director: Alfreda Siddiqui MD,PhD,SARMAD Performing Organization Address [facility] Phone Number [facility] [employer] [address] [place] [address] [facility] [address] * Striated muscle Ab, IgG with reflex to titer (12/27/2018 4:00 PM ORACLE CONSULTANT) Pathologist [facility] Striated muscle NEGATIVE NEGATIVE [facility] Ab, IgG screen Comment: [facility] This test was developed and [facility] its analytical performance characteristics have been determined by [employer] [facility]. It has not been cleared or approved by FDA. This assay has been validated pursuant to the CLIA regulations and is used for clinical purposes. Specimen Narrative Performed At FASTING: UNKNOWN [employer] Resulting Agency Comment Performing Organization Information: Site ID: EZ Name: [employer], Address: [address] [place] [address] Director: Alfreda Siddiqui MD,PhD,SARMAD Performing Organization Address [facility] Phone Number [facility] [address] [place] [address] [facility] [address] * Aldolase, serum (12/27/2018 4:00 PM ORACLE CONSULTANT) Aldolase 1.1 < OR=8.1 U/L [employer] ING II Specimen Narrative Performed At FASTING: UNKNOWN [facility] Resulting Agency Comment Performing Organization Information: Site ID: IG Name: [facility] Address: [address] [place] [address] Director: Dr. Miles Chopra Performing Organization Address [facility]/Zipcode Phone Number [facility] [employer] [address] II * Serum electrophoresis (12/27/2018 4:00 PM ORACLE CONSULTANT) Protein 7.0 6.1 - 8.1 g/dL [facility] ING II Albumin, S 4.6 3.8 - 4.8 g/dL [facility] ING II Ysjsd-3-ybjlutt 0.2 0.2 - 0.3 g/dL [facility] n [facility] ING II Rxzfn-8-vednqef 0.5 0.5 - 0.9 g/dL [facility] n [facility] ING II Beta-1 globulin 0.6 0.4 - 0.6 g/dL [facility] ING II Beta-2 globulin 0.2 0.2 - 0.5 g/dL [facility] ING II Gamma, CSF 0.8 0.8 - 1.7 g/dL [facility] ING II Interpretation Comment: [facility] Normal Electrophoretic Pattern [facility] ING II Specimen Narrative Performed At FASTING: UNKNOWN [facility] Resulting Agency Comment Performing Organization Information: Site ID: IG Name: [facility] Address: [address] [place] [phone] Director: Dr. Miles Chopra Performing Organization Address [facility] Centercode Phone Number [facility] [employer] [address] II * Lactic acid level (12/27/2018 4:00 PM ORACLE CONSULTANT) Lactic acid 1.8 0.4 - 1.8 mmol/L [facility] ING II Specimen Narrative Performed At FASTING: UNKNOWN [facility] Resulting Agency Comment Performing Organization Information: Site ID: IG Name: [facility] Address: [address] [place] [phone] Director: Dr. Miles Chopra Performing Organization Address [facility]/Zipcode Phone Number [facility] [employer] [address] II * Creatine kinase, total (CPK) (12/27/2018 4:00 PM ORACLE CONSULTANT) Creatine kinase 122 44 - 196 U/L [employer] [facility] [place] Specimen Narrative Performed At FASTING: UNKNOWN [facility] Resulting Agency Comment Performing Organization Information: Site ID: RGA Name: [facility] Address: [address] [place] [phone] Director: Lindsay Garcia Performing Organization Address City/[facility] Centercode Phone Number [facility] [place] [phone] * Basic metabolic panel (12/27/2018 4:00 PM ORACLE CONSULTANT) Glucose 99 65 - 99 mg/dL [facility] Comment: DIAGNOSTICS Fasting [place] reference interval BUN, whole 32 (H) 7 - 25 mg/dL [facility] blood [facility] [place] Creatinine 1.55 (H) 0.70 - 1.33 mg/dL [facility] Comment: DIAGNOSTICS For patients >49 years of age, [place] the reference limit for Creatinine is approximately 13% higher for people identified as -Tongan. EGFR Non-Afr. 50 (L) > OR=60 [facility] [place] mL/min/1.73m2 DIAG[facility]ICS [place] EGFR 58 (L) > OR=60 [facility] [place] mL/min/1.73m2 [facility] [place] BUN/creatinine 21 6 - 22 (calc) [facility] ratio [facility] [place] Sodium 144 135 - 146 mmol/L [facility] [place] Potassium 4.8 3.5 - 5.3 mmol/L [facility] [place] Chloride 103 98 - 110 mmol/L [facility] [place] CO2 30 20 - 32 mmol/L [facility] [place] Calcium 9.5 8.6 - 10.3 mg/dL [facility] [place] Specimen Narrative Performed At FASTING: UNKNOWN [facility] Resulting Agency Comment Performing Organization Information: Site ID: RGA Name: [facility] Address: [address] [place] [address] Director: Lindsay Garcia Performing Organization Address City/[facility] Centercode Phone Number [facility] [employer] [address] [address] after 04/12/2018 Insurance Type Payer Benefit Subscriber ID Effective Phone Address Plan / Dates Group HMO [employer] TEXAN[employer]US xxxxxxxxx 2016-P MCR resent ([place]) [place] [address] Advance Directives Patient has advance care planning documents on file. For more information, katerina friedman contact: Rico Castillo [address] [place] [address]
--- OUTSIDE RECORDS SUMMARY | 2019-04-13 11:09 | XMS REPORT ---
Author Author [facility] Address Unknown Phone Unavailable Care Team Providers Care Gear Finisher Name Role Phone PAPA SANCHZE Unavailable Unavailable Payers Payer Name Policy Type Policy Number Effective Date Expiration Date Problems This patient has no known problems. Allergies, Adverse Reactions, Alerts Allergy Name Allergy Type Status Severity Reaction(s) Onset Date Inactive Date Treating Clinician Comments No Known Allergies DA Active U 2017-03-13 00:00:00 Medications This patient has no known medications. Results Test Description Test Time Test Comments Text Results Atomic Results Result Comments CHEST 2 VIEWS 2019-04-12 14:23:00 [place] [address] Patient Name: PERRY INTERIANO MR #: [id number] : 1965 Age/Sex: 53/M Req #: [id number] Adm Physician: Ordered by: PAPA SANCHEZ MD Report #: [id number] Location: OR Room/Bed: Procedure: [id number] DX/CHEST 2 VIEWS Exam Date: 04/12/19 Exam Time: 1340 REPORT STATUS: Signed EXAMINATION: PA and lateral views of the chest. COMPARISON: None CLINICAL HISTORY: Preoperative exam for hernia repair DISCUSSION: Lines/tubes: None. Lungs: The lungs are well inflated and clear. There is no evidence of pneumonia or pulmonary edema. Pleura: There is no pleural effusion or pneumothorax. Heart and mediastinum: The cardiomediastinal silhouette is normal. Bones and soft tissues: No acute bony abnormalities. Healed fracture deformity of the posterior right eighth rib. IMPRESSION: No acute cardiopulmonary abnormalities. Signed by: Dr. Papa Vargas M.D. on 04/12/2019 2:24 PM Dictated By: PAPA VARGAS MD 1424 Transcribed By: ENMANUEL on 04/12/19 1423 COPY TO: PAPA SANCHEZ MD
[2019-04-13 14:20] VITALS: BP 97/67
--- NOTE | 2019-04-13 20:46 | Operative Report ---
DATE OF PROCEDURE: 04/13/2019 SURGEON: Lalo Taylor MD PREOPERATIVE DIAGNOSIS: Umbilical hernia. POSTOPERATIVE DIAGNOSIS: Umbilical hernia. PROCEDURE: Repair of umbilical hernia. MECHANICAL SHOVEL OPERATOR: None. ANESTHESIA: General. INDICATIONS AND FINDINGS: The patient is a 53-year-old male, who presented with complaints of a bulge in his umbilicus, which increased in size, surgery based on the umbilical hernia fascial defect approximately 1.5 cm, containing preperitoneal fat and omentum. TECHNIQUE: After adequate general anesthesia, the patient in supine position, the abdomen was prepped and draped in sterile fashion with ChloraPrep solution. Transverse incision was made inferior to the umbilicus, carried down through the subcutaneous tissue. The umbilicus was dissected free from the herniated mass and dissected free down to the fascia and freed from the fascia throughout circumferentially. The hernia defect was then reduced, the mass was reduced beneath the fascia. The fascial defect was about 1.5 cm, this was closed directly transversely with a running suture of 0-Prolene. Hemostasis of the wound was seen to be adequate. It was then infiltrated with 0.5% Marcaine. The umbilicus was sutured to the fascia using 3-0 Vicryl. The subcutaneous tissue was closed with running suture 3-0 Vicryl. Skin was closed with a running subcuticular suture of 4-0 Vicryl. Dermabond and sterile dressing were applied. The patient tolerated the procedure well. Estimated blood loss was less than 5 mL. There were no complications. All counts were correct and the patient was taken to the recovery room in satisfactory condition. Lalo Taylor MD DWG/MODL /[id number]
== END | disposition home or self-care (01) ==
LOC: OR 10:55
PROVIDERS: ATTEND Surgery
DX: K42.9 Umbilical hernia without obstruction or gangrene (principal); J45.909 Unspecified asthma, uncomplicated; I10 Essential (primary) hypertension; E78.5 Hyperlipidemia, unspecified; Z01.810 Encounter for preprocedural cardiovascular examination; Z01.812 Encounter for preprocedural laboratory examination; Z01.818 Encounter for other preprocedural examination; Z79.82 Long term (current) use of aspirin; Z87.891 Personal history of nicotine dependence
CPT/HCPCS: 36415; 49585; 71046; 85025; 93005; J0461; J0690; J1100; J2001; J2250; J2405; J2704